=== PATIENT | female | born 1950 | race Hispanic/Latino ===

== ENCOUNTER 2020-05-18 12:18 | Day surgery (SDC) | payer OTHER ==
[2020-05-14 15:55] LABS: Absolute Lymphocytes (CBC) 2.8 K/uL (0.7-4.9); Basophils % 1.2 % (0-1.3); Lymphocytes % 34.3 % (15.3-44.8); MPV 9.8 fL (7.6-11.3); RBC Red Blood Cell Count 3.88 M/uL (3.86-4.86)
[2020-05-14 15:57] LABS: Protime INR 0.97
[2020-05-14 16:02] LABS: Potassium 3.7 mmol/L (3.5-5.1)
--- NOTE | 2020-05-15 12:48 | EKG ---
Test Date: 2020-05-14 Test Time: 14:14:45 Risk Control Manager: SAMIR MEASUREMENT RESULTS: Intervals: Rate: 57 CA: 150 QRSD: 88 QT: 420 QTc: 408 [place]: P: 66 CA: 150 QRS: 59 T: 91 INTERPRETIVE STATEMENTS: Sinus bradycardia ST abnormality, possible digitalis effect Abnormal ECG Compared to ECG 07/10/1999 18:16:00 ST (T wave) deviation now present Sinus rhythm no longer present Electronically Signed On 05-15-20 12:45:38 CDT by Robert Whitt
[2020-05-18] MEDS ORDERED: NA CHLORIDE 0.9% 500 ML ONE (12:59)
[2020-05-18] MEDS ORDERED: HEPA 1000U/500MLS 1,000 UNIT/500 ML BAG IV ONE (17:43)
[2020-05-18] MEDS ORDERED: MIDAZOLAM HCL 2 MG/2 ML INJ ONE (17:43)
[2020-05-18] MEDS ORDERED: HEPARIN 5000 UNIT/ML 1 ML VIAL ONE (17:43)
[2020-05-18] MEDS ORDERED: FENTANYL CITR 100 MCG/2 ML ONE (17:44)
[2020-05-18] MEDS ORDERED: VERAPAMIL HCL 10 MG/4 ML VIAL IV ONE (17:44)
[2020-05-18] MEDS ORDERED: ATROPINE SULF 1 MG/10 ML SYR IV ONE (17:44)
[2020-05-18] MEDS ORDERED: HEPARIN 10,000 UNIT/10 ML VIAL IV ONE (17:44)
[2020-05-18 19:45] VITALS: TEMP 97.6; O2SAT 98
[2020-05-18 21:06] VITALS: BP 123/55
--- NOTE | 2020-05-18 22:08 | OP ---
Date of Procedure: 05/18/2020 Surgeon: EVENS NAILS Procedure Performed: Selective coronary angiogram. Indication: Abnormal stress test. Access: Right radial artery 6-Kinyarwanda closed with TR band. Complications: None. Bleeding: Less than 10 mL. Description Of Procedure: After risks, benefits, and alternatives were explained, the patient agreed to the procedure and signed informed consent. Then we accessed the right radial artery using pediat lakia micropuncture kit and a 6-Kinyarwanda slender sheath, and took a 5-Kinyarwanda Brutus catheter 4.0 into the aortic root, engaged the left main and right coronary artery, took standard views and then removed th e catheter and sheath, and placed TR band. Findings: 1.Left main, large, normal. 2.LAD, proximal mild 30% stenosis. Otherwise normal LAD. 3.Left circumflex normal. 4.RCA is normal. Conclusion: Mild LAD disease, nonobstructive. Plan: Medical management and follow up in 4 weeks in the office. SR/MODL Voice ID: [id number] Report ID: [id number]
== END 2020-05-18 21:00 | disposition home or self-care (01) ==
LOC: CCL 12:18
PROVIDERS: ATTEND Internal Medicine
DX: I25.10 Atherosclerotic heart disease of native coronary artery without angina pectoris (principal); Z20.822 Contact with and (suspected) exposure to COVID-19
CPT/HCPCS: 93005; 85025; 80048; 36415; 85610; 85730; 93454; U0003; C1893; J1644 ×2; J2250; J3010; J7040

== ENCOUNTER 2021-04-30 18:34 | Emergency (ER) | payer OTHER ==
[2021-04-30] MEDS ORDERED: ONDANSETRON 4 MG/2 ML VIAL ONE (19:46)
[2021-04-30] MEDS ORDERED: MORPHINE 4 MG/ML SYR ONE (19:46)
[2021-04-30] MEDS ORDERED: FAMOTIDINE 20 MG/2 ML VIAL IV ONE (19:47)
[2021-04-30 19:59] LABS: Urine Blood Negative (Negative); Urine Glucose Negative (Negative); Urine Protein Negative (Negative)
[2021-04-30 20:09] LABS: Absolute Lymphocytes (CBC) 1.6 K/uL (0.7-4.9); Hematocrit 35.5 % (36.0-45.0); Lymphocytes % 21.7 % (15.3-44.8); MPV 9.1 fL (7.6-11.3); RBC Red Blood Cell Count 3.75 M/uL (3.86-4.86)
[2021-04-30 20:33] LABS: Urine Bacteria <20 /HPF (<20); Urine RBC <5 /HPF (NONE SEEN)
[2021-04-30 21:03] LABS: Albumin 3.9 g/dL (3.4-5.0); Bilirubin Total 0.5 mg/dL (0.2-1.0); Potassium 3.7 mmol/L (3.5-5.1); Protein, Total 7.5 g/dL (6.4-8.2)
[2021-04-30] MEDS ORDERED: OSELTAMIVIR 75 MG CAP ONE (21:12)
--- NOTE | 2021-04-30 22:05 | RAD REPORT ---
EXAM DESCRIPTION: CT - Abdomen Pelvis W Contrast - 04/30/2021 9:39 pm CLINICAL HISTORY: ABD PAIN COMPARISON: No comparisons TECHNIQUE: Biphasic, helical CT imaging of the abdomen and pelvis was performed following 100 ml non -ionic IV contrast. No oral contrast. All CT scans are performed using dose optimization technique as appropriate and may include automated exposure control or mA/KV adjustment according to patient size. FINDINGS: Venous phase acquisition has substantial motion degradation. No suspicious findings in the lung bases. The liver, spleen, and pancreas show no suspicious findings. Gallbladder is absent. Biliary tree with in normal limits for post cholecystectomy status. Symmetric renal function is seen with no hydronephrosis or suspicious renal mass. Focal cortical thin mari and calcification noted lateral inferior left kidney likely prior infection or possibly ischemic insult. No pyelonephritis or acute parenchymal process. No bladder abnormalities. No adrenal abnorma lities. Uterus and ovaries show no suspicious findings. No dilated bowel loops or bowel wall thickening. Prominent sigmoid diverticulosis without diverticuli tis. No suspicion for appendicitis. None No hernia, mass or bulky lymphadenopathy. Disc and bone degenerative changes are present. IMPRESSION: Contrast enhanced CT abdomen and pelvis showing no acute or emergent finding.
--- NOTE | 2021-04-30 22:52 | EDPHYS ---
Physician Documentation [facility] Name: Katherine Carroll Age: 71 yrs Sex: Female : 1950 Arrival Date: 04/30/2021 Time: 18:39 Bed 27 Private MD: ED Physician Adrian Patel HPI: 04/30 20:44 This 71 yrs old Female presents to ER via Ambulatory with complaints of ms3 Abdominal Pain, Vomiting. 20:44 The patient presents to the emergency department with abdominal pain, of the right ms3 upper quadrant, right lower quadrant and left lower quadrant, described as achy, and does not radiate. The patient presents to the emergency department with nausea, vomiting. Onset: The symptoms/episode began/occurred acutely, 5 day(s) ago. Possible causes: unknown. The symptoms are aggravated by nothing. The symptoms are alleviated by nothing. Associated signs and symptoms: Pertinent positives: abdominal pain, nausea, vomiting, Pertinent negatives: dysuria, fever. Severity of symptoms: At their worst the symptoms were severe in the emergency department the symptoms are unchanged Pain is currently a 8 / 10. 71-year-old female with past medical history of hypercholesterolemia and hypertension presents for right lower quadrant abdominal pain that has been ongoing for 5 days. Patient saw her primary care doctor yesterday and was given prescriptions for Cipro, tramadol, sucralfate, pantoprazole. Patient states her pain is currently 8/10 and described as "pain.". Patient states taking the pills made her feel worse. Patient endorses nausea, vomiting, chills. Patient denies fever.. Historical: - Allergies: 19:19 No Known Allergies; emma - Home Meds: 19:19 Cipro 250 mg Oral tab [Active]; sucralfate 1 gram Oral tab 1 tab 2 times per day emma [Active]; Protonix 40 mg Oral TbEC [Active]; tramadol 50 mg Oral tab [Active]; - PMHx: 19:19 Hypercholesterolemia; hypertension; emma - Immunization history:: Client reports receiving the 2nd dose of the Covid vaccine. - Social history:: Smoking status: Patient denies any tobacco usage or history of. Patient/guardian denies using alcohol, street drugs. ROS: 20:47 Constitutional: Negative for fever, and chills. Eyes: Negative for injury, pain, ms3 redness, and discharge, Neck: Negative for injury, pain, and swelling, Cardiovascular: Negative for chest pain, and palpitations. Respiratory: Negative for shortness of breath, cough, wheezing, and pleuritic chest pain, MS/Extremity: Negative for injury and deformity, Skin: Negative for injury, rash, and discoloration. 20:47 All other systems are negative. 20:47 Abdomen/GI: Positive for abdominal pain, nausea and vomiting. ms3 Exam: 20:47 Constitutional: This is a well developed, well nourished patient who is awake, alert, ms3 and in no acute distress. Eyes: Pupils equal round and reactive to light, extra-ocular motions intact. Lids and lashes normal. Conjunctiva and sclera are non-icteric and not injected. Periorbital areas with no swelling, redness, or edema. Neck: Trachea midline, no cervical lymphadenopathy. Supple, full range of motion without nuchal rigidity, or vertebral point tenderness. No Meningismus. Chest/axilla: Normal chest wall appearance and motion. Nontender with no deformity. Cardiovascular: Regular rate and rhythm with a normal S1 and S2. No gallops, murmurs, or rubs. Normal PMI, no JVD. No pulse deficits. Respiratory: Lungs have equal breath sounds bilaterally, clear to auscultation and percussion. No rales, rhonchi or wheezes noted. No increased work of breathing, no retractions or nasal flaring. Skin: Warm, dry with normal turgor. Normal color with no rashes, no lesions, and no evidence of cellulitis. Neuro: Awake and alert, GCS 15, oriented to person, place, time, and situation. Cranial nerves II-XII grossly intact. Motor strength 5/5 in all extremities. Sensory grossly intact. Cerebellar exam normal. Normal gait. 20:47 Abdomen/GI: Inspection: abdomen appears normal, Bowel sounds: normal, Palpation: moderate abdominal tenderness, in the left upper quadrant, right lower quadrant and left lower quadrant. Vital Signs: 19:16 BP 140 / 70; Pulse 72; Resp 18; Temp 97.7; Pulse Ox 99% on R/A; Weight 63.5 kg; Height emma 5 ft. 3 in. (160.02 cm); Pain 8/10; 19:22 BP 140 / 70; Pulse 72; Resp 18; Temp 97.7; Pulse Ox 99% on R/A; Pain 8/10; emma 20:06 BP 138 / 52; Pulse 59; Resp 20; Pulse Ox 97% ; ss7 22:46 BP 148 / 73; Pulse 59; Resp 18; Pulse Ox 98% on R/A; ss7 19:16 Body Mass Index 24.80 (63.50 kg, 160.02 cm) emma MDM: 19:46 Patient medically screened. ms3 20:48 Differential diagnosis: Nonspecific abd pain, gastritis, pancreatitis, appendicitis, ms3 diverticulitis, viral gastroenteritis, gastroenteritis. 22:51 Data reviewed: vital signs, nurses notes, lab test result(s), radiologic studies, CT ms3 scan. Counseling: I had a detailed discussion with the patient and/or guardian regarding: the historical points, exam findings, and any diagnostic results supporting the discharge/admit diagnosis, lab results, radiology results, the need for outpatient follow up, to return to the emergency department if symptoms worsen or persist or if there are any questions or concerns that arise at home. ED course: Discussed labs, CT, physical exam findings with patient and her daughter. Patient to follow-up with primary care physician as discussed. All questions were answered. Return precautions discussed include worsening symptoms, or any other concerns. On reevaluation patient is alert and oriented x4, no apparent distress, nontoxic, ambulatory emergency department, tolerating p.o.. 04/30 19:38 Order name: CBC with Diff; Complete Time: 20:44 ms3 04/30 19:38 Order name: CMP; Complete Time: 22:01 ms3 04/30 19:38 Order name: Lipase; Complete Time: 22:01 ms3 04/30 19:38 Order name: Urine Microscopic Only; Complete Time: 20:44 ms3 04/30 19:59 Order name: Urine Dipstick-Ancillary; Complete Time: 20:44 EDMS 04/30 20:36 Order name: Urine Culture ED04/30 19:38 Order name: CT Abd/Pelvis - IV Contrast Only; Complete Time: 22:21 ms3 04/30 19:38 Order name: IV Saline Lock; Complete Time: 19:49 ms3 04/30 19:38 Order name: Labs collected and sent; Complete Time: 19:49 ms3 04/30 20:43 Order name: Lactate; Complete Time: 22:01 ms3 04/30 19:38 Order name: Urine Dipstick-Ancillary (obtain specimen); Complete Time: 20:01 ms3 Administered Medications: 20:01 Drug: Pepcid (famotidine) 20 mg Route: IVP; Site: left antecubital; ss7 21:14 Follow up: Response: No adverse reaction; Marked relief of symptoms lr4 23:05 Follow up: Response: No adverse reaction ss7 20:01 Drug: Zofran (Ondansetron) 4 mg Route: IVP; Site: left antecubital; ss7 21:14 Follow up: Response: Nausea is decreased lr4 23:06 Follow up: Response: No adverse reaction ss7 20:01 Drug: morphine 4 mg Route: IVP; Site: left antecubital; ss7 21:14 Follow up: Response: Pain is decreased lr4 23:05 Follow up: Response: RASS: Alert and Calm (0) ss7 23:05 Drug: Ondansetron 4 mg Route: PO; ss7 23:06 Follow up: Response: No adverse reaction ss7 Disposition Summary: 04/30/21 22:51 Discharge Ordered Location: Home ms3 Problem: new ms3 Condition: Stable ms3 Diagnosis - Abdominal pain, Generalized ms3 - Nausea with vomiting, unspecified ms3 Followup: ms3 - With: Ramon Farley MD - When: 2 - 3 days - Reason: Re-evaluation by your physician Discharge Instructions: - Discharge Summary Sheet ms3 - Abdominal Pain, Adult ms3 - Nausea and Vomiting, Adult ms3 Forms: - Medication Reconciliation Form ms3 - Thank You Letter ms3 - Antibiotic Education ms3 - Prescription Opioid Use ms3 Prescriptions: - Zofran 4 mg Oral Tablet - take 1 tablet by ORAL route every 12 hours As needed; 20 tablet; Refills: 0, ms3 Product Selection Permitted Signatures: Dispatcher [employer] Adrian Mann DO DO ms3 Kourtney Jimenez RN RN bo Smith, Shana, RN RN ss7 Nakita Clayton RN lr4
--- NOTE | 2021-04-30 22:52 | ER ---
Nurse's Notes [facility] [place] Name: Katherine Carroll Age: 71 yrs Sex: Female : 1950 Arrival Date: 04/30/2021 Time: 18:39 Bed 27 Private MD: Diagnosis: Abdominal pain, Generalized;Nausea with vomiting, unspecified Presentation: 04/30 19:16 Chief complaint: Patient states: Abdominal pain x 4 days, seen by PCP yesterday. emma Coronavirus screen: Vaccine status: Patient reports receiving the 2nd dose of the covid vaccine. Ebola Screen: Patient negative for fever greater than or equal to 101.5 degrees Fahrenheit, and additional compatible Ebola Virus Disease symptoms Patient denies exposure to infectious person. Patient denies travel to an Ebola-affected area in the 21 days before illness onset. Initial Sepsis Screen: Does the patient meet any 2 criteria? No. Patient's initial sepsis screen is negative. Does the patient have a suspected source of infection? No. Patient's initial sepsis screen is negative. Risk Assessment: Do you want to hurt yourself or someone else? Patient reports no desire to harm self or others. Onset of symptoms was April 20, 2021. 19:16 Method Of Arrival: Ambulatory emma 19:16 Acuity: [place] 3 emma Triage Assessment: 19:21 General: Appears uncomfortable, Behavior is calm, cooperative, Micronesian speaking only . emma Pain: Complains of pain in abdomen. GI: Reports lower abdominal pain, constipation. Historical: - Allergies: 19:19 No Known Allergies; emma - Home Meds: 19:19 Cipro 250 mg Oral tab [Active]; sucralfate 1 gram Oral tab 1 tab 2 times per day emma [Active]; Protonix 40 mg Oral TbEC [Active]; tramadol 50 mg Oral tab [Active]; - PMHx: 19:19 Hypercholesterolemia; hypertension; emma - Immunization history:: Client reports receiving the 2nd dose of the Covid vaccine. - Social history:: Smoking status: Patient denies any tobacco usage or history of. Patient/guardian denies using alcohol, street drugs. Screenin:02 Abuse screen: Denies threats or abuse. Nutritional screening: No deficits noted. ss7 Tuberculosis screening: No symptoms or risk factors identified. Fall Risk IV access (20 points). Assessment: 20:02 General: Appears in no apparent distress. Behavior is calm, cooperative, appropriate ss7 for age. Pain: Complains of pain in abdomen. Neuro: No deficits noted. Cardiovascular: Heart tones S1 S2. Respiratory: Breath sounds are clear bilaterally. GI: Bowel sounds present X 4 quads. Abd is soft Abdomen is tender to palpation. : No deficits noted. EENT: No deficits noted. Derm: No deficits noted. Musculoskeletal: No deficits noted. Vital Signs: 19:16 BP 140 / 70; Pulse 72; Resp 18; Temp 97.7; Pulse Ox 99% on R/A; Weight 63.5 kg; Height emma 5 ft. 3 in. (160.02 cm); Pain 8/10; 19:22 BP 140 / 70; Pulse 72; Resp 18; Temp 97.7; Pulse Ox 99% on R/A; Pain 8/10; emma 20:06 BP 138 / 52; Pulse 59; Resp 20; Pulse Ox 97% ; ss7 22:46 BP 148 / 73; Pulse 59; Resp 18; Pulse Ox 98% on R/A; ss7 19:16 Body Mass Index 24.80 (63.50 kg, 160.02 cm) emma ED Course: 18:39 Patient arrived in ED. mr 19:18 Adrian Patel DO is Attending Physician. ms3 19:19 Triage completed. emma 19:23 Arm band placed on left wrist. emma 19:49 Magnolia Chung, RN is Primary Nurse. ss7 19:49 CBC with Diff Sent. ss7 19:49 CMP Sent. ss7 19:49 Lipase Sent. ss7 20:01 Urine Microscopic Only Sent. ss7 20:02 Patient has correct armband on for positive identification. ss7 20:02 No provider procedures requiring assistance completed. Inserted saline lock: 20 gauge ss7 in left antecubital area, using aseptic technique. 20:49 Urine Culture Sent. ss7 20:57 Lactate Sent. ss7 20:57 CMP Sent. ss7 20:57 Lipase Sent. ss7 21:13 Lactate Sent. lr4 21:41 CT Abd/Pelvis - IV Contrast Only In Process Unspecified. EDMS 22:50 Ramon Farley MD is Referral Physician. ms3 23:04 IV discontinued, intact. ss7 Administered Medications: 20:01 Drug: Pepcid (famotidine) 20 mg Route: IVP; Site: left antecubital; ss7 21:14 Follow up: Response: No adverse reaction; Marked relief of symptoms lr4 23:05 Follow up: Response: No adverse reaction ss7 20:01 Drug: Zofran (Ondansetron) 4 mg Route: IVP; Site: left antecubital; ss7 21:14 Follow up: Response: Nausea is decreased lr4 23:06 Follow up: Response: No adverse reaction ss7 20:01 Drug: morphine 4 mg Route: IVP; Site: left antecubital; ss7 21:14 Follow up: Response: Pain is decreased lr4 23:05 Follow up: Response: RASS: Alert and Calm (0) ss7 23:05 Drug: Ondansetron 4 mg Route: PO; ss7 23:06 Follow up: Response: No adverse reaction ss7 Outcome: 22:51 Discharge ordered by . ms3 22:52 Discharged to home with family. ss7 22:52 Condition: good 22:52 Discharge instructions given to patient, family. 23:07 Patient left the ED. ss7 Signatures: Dispatcher [employer] Bere Zafar Marcus, DO DO ms3 Kourtney Jimenez RN RN bo Smith, Shana, RN RN ss7 Nakita Clayton RN RN lr4
[2021-04-30] MEDS ORDERED: ONDANSETRON 4 MG (ODT) TAB ONE (23:03)
[2021-05-01 00:51] VITALS: TEMP 97.7
[2021-05-01 00:55] VITALS: BP 148/73; O2SAT 98
== END 2021-04-30 23:07 | disposition home or self-care (01) ==
LOC: ER 18:34
DX: R10.84 Generalized abdominal pain (principal); R11.2 Nausea with vomiting, unspecified; E78.00 Pure hypercholesterolemia, unspecified; I10 Essential (primary) hypertension
CPT/HCPCS: 87088; 85025; 87086; 36415; 83605; 83690; 80053; 74177; 96375; 96374; 99284; Q9967; J2405; 81003; 81015

== ENCOUNTER 2023-09-18 15:45 | Inpatient (IN) | payer OTHER ==
[2023-09-18] MEDS ORDERED: ONDANSETRON 4 MG/2 ML VIAL ONE (17:51)
[2023-09-18 18:07] LABS: Absolute Basophils 0.1 K/uL (0-0.5); Absolute Eosinophils 0.1 K/uL (0-0.5); Absolute Lymphocytes (CBC) 1.9 K/uL (0.7-4.9); Absolute Monocytes 1.1 K/uL (0.1-1.3); Absolute Neutrophil 10.2 K/uL (1.8-8.0); Basophils % 0.6 % (0-1.3); Eosinophils % 0.7 % (0-4.4); Hematocrit 38.1 % (36.0-45.0); Hemoglobin 12.7 g/dL (12.0-15.0); MCH 32.7 pg (27.0-35.0); MCHC 33.5 g/dL (32.0-36.0); MCV 97.8 fL (80-100); MPV 8.6 fL (7.6-11.3); Monocytes % 8.3 % (3.3-12.3); Neutrophils % 76.4 % (41.7-73.7); Platelets 272 thou/uL (152-406); Red Cell Distribution Width 12.5 % (12.1-15.2)
[2023-09-18 18:28] LABS: Albumin 3.7 g/dL (3.4-5.0); Albumin/Globulin Ratio 0.8 (1.1-1.8); Anion Gap 10.3 mEq/L (5.0-15.0); Bilirubin Total 0.6 mg/dL (0.2-1.0); Globulin 4.6 g/dL (2.3-3.5); Potassium 3.3 mEq/L (3.5-5.1); Protein, Total 8.3 g/dL (6.4-8.2)
[2023-09-18] MEDS ORDERED: NA CHLORIDE 0.9% 0 ML ONE (19:14)
[2023-09-18] MEDS ORDERED: NA CHLORIDE 0.9% 1,000 ML ONE (19:21)
--- NOTE | 2023-09-18 19:35 | RAD REPORT ---
EXAM DESCRIPTION: CT - Abdomen Pelvis W Contrast - 09/18/2023 7:15 pm CLINICAL HISTORY: Abdominal pain COMPARISON: 2021 TECHNIQUE: Computed axial tomography of the abdomen pelvis was obtained. 100 cc Isovue-300 was admin istered intravenously. Oral contrast was not requested which limits evaluation of bowel and appendix All CT scans are performed using dose optimization technique as appropriate and may include automated exposure control or mA/KV adjustment according to patient size. FINDINGS: The liver, spleen, pancreas, adrenal and kidneys appear unremarkable. Cholecystectomy. Liver, spleen, pancreas, adrenals and kidneys unremarkable Diverticula stem from the colon. Mild stranding adjacent to sigmoid. This likely represents mild dive rticulitis No adnexal mass Small umbilical hernia. Small hiatal hernia Cecum measures 6.6 centimeters IMPRESSION: Mild sigmoid diverticulitis
[2023-09-18] MEDS ORDERED: PIPERACIL/TAZO 3.375 GM VIAL IV ONE (20:01)
[2023-09-18] MEDS ORDERED: NA CHLORIDE 0.9% 100 ML ONE (20:01)
[2023-09-18 20:15] LABS: Specific Gravity 1.021 (1.005-1.030); Sqamous Epithelial <5 /HPF (None Seen); Urine Bacteria None Seen /HPF (<20); Urine Bilirubin NEGATIVE (Negative); Urine Blood 2+ (Negative); Urine Clarity Extremely Turbid (Clear); Urine Color Yellow (Yellow); Urine Culture Reflex Order REFLEXED; Urine Glucose NEGATIVE (Negative); Urine Ketones NEGATIVE (Negative); Urine Microscopic Reflex YN ORDER UMIC; Urine Mucus Slight /HPF (None Seen); Urine Nitrite NEGATIVE (Negative); Urine Protein 2+ (Negative); Urine RBC 21-50 /HPF (None Seen); Urine Urobilinogen Normal (Normal); Urine WBC >50 /HPF (<5); Urine pH 6.5 (5.0-7.0)
--- NOTE | 2023-09-18 20:33 | EDPHYS ---
Physician Documentation [facility] Name: Katherine Carroll Age: 73 yrs Sex: Female : 1950 Arrival Date: 09/18/2023 Time: 15:45 Bed 2 Private MD: ED Physician Sujit Putnam HPI: 09/17 20:32 This 73 yrs old Female presents to ER via Ambulatory with complaints of rt Vomiting. 20:32 Patient with recent diagnosis of COVID-19 presents to the ED with nausea, vomiting, rt diarrhea starting today. Patient does report a lower abdominal pain as well as a pain and burning with urination. Patient denies other acute complaints at this time, symptoms are moderate in severity, no other aggravating or elevating factors.. Historical: - Allergies: 16:21 No Known Allergies; cm10 - Home Meds: 16:21 losartan 25 mg oral tablet [Active]; rosuvastatin 5 mg oral tablet [Active]; cm10 - PMHx: 16:21 Hypercholesterolemia; Hypertension; cm10 - Immunization history:: Adult Immunizations up to date. - Infectious Disease History:: Denies. - Social history:: Smoking status: Patient denies any tobacco usage or history of. - Family history:: not pertinent. ROS: 20:32 Constitutional: Negative for fever, chills, and weight loss, Cardiovascular: Negative rt for chest pain, palpitations, and edema, Respiratory: Negative for shortness of breath, cough, wheezing, and pleuritic chest pain, MS/Extremity: Negative for injury and deformity, Skin: Negative for injury, rash, and discoloration, Neuro: Negative for headache, weakness, numbness, tingling, and seizure, 20:32 Abdomen/GI: Positive for abdominal pain, nausea, vomiting, and diarrhea, Exam: 20:32 Constitutional: This is a well developed, well nourished patient who is awake, alert, rt and in no acute distress. Head/Face: Normocephalic, atraumatic. Chest/axilla: Normal chest wall appearance and motion. Nontender with no deformity. No lesions are appreciated. Cardiovascular: Regular rate and rhythm with a normal S1 and S2. No gallops, murmurs, or rubs. Normal PMI, no JVD. No pulse deficits. Respiratory: Lungs have equal breath sounds bilaterally, clear to auscultation and percussion. No rales, rhonchi or wheezes noted. No increased work of breathing, no retractions or nasal flaring. Skin: Warm, dry with normal turgor. Normal color with no rashes, no lesions, and no evidence of cellulitis. MS/ Extremity: Pulses equal, no cyanosis. Neurovascular intact. Full, normal range of motion. Neuro: Awake and alert, GCS 15, oriented to person, place, time, and situation. Cranial nerves II-XII grossly intact. Motor strength 5/5 in all extremities. Sensory grossly intact. Cerebellar exam normal. Normal gait. 20:32 Abdomen/GI: Tenderness to the suprapubic region, no rebound, guarding, distention, Vital Signs: 16:19 BP 127 / 69; Pulse 79; Resp 18; Temp 98.3(O); Pulse Ox 94% on R/A; Weight 63.05 kg; cm10 Height 5 ft. 3 in. ; Pain 8/10; 17:57 Temp 98.7(O); nj1 19:30 BP 129 / 72; Pulse 91; Resp 14; Pulse Ox 99% ; Pain 7/10; jm12 19:30 BP 114 / 52; Pulse 68; Resp 16; Pulse Ox 98% on R/A; Pain 6/10; mt4 21:00 BP 125 / 54; Pulse 64; Resp 18; Pulse Ox 100% ; Pain 5/10; mt4 22:10 BP 126 / 60; Pulse 65; Resp 16; Temp 99.5; Pulse Ox 100% on R/A; mt4 23:00 BP 123 / 57; Pulse 60; Resp 16; Temp 99.4; Pulse Ox 97% on R/A; mt4 16:19 Body Mass Index 24.62 (63.05 kg, 160.02 cm) cm10 16:19 Pain Scale: Adult cm10 19:30 Pain Scale: Adult jm12 19:30 Pain Scale: Adult mt4 21:00 Pain Scale: Adult mt4 Penny Coma Score: 19:30 Eye Response: spontaneous(4). Motor Response: obeys commands(6). Verbal Response: mt4 oriented(5). Total: 15. 23:00 Eye Response: spontaneous(4). Motor Response: obeys commands(6). Verbal Response: mt4 oriented(5). Total: 15. MDM: 16:24 Patient medically screened. rt 20:32 Differential diagnosis: Viral syndrome, diverticulitis, UTI. Data reviewed: vital rt signs, nurses notes. Consideration of Admission/Observation Patient was admitted/placed on observation. Management of patient was discussed with the following: Hospitalist: Agrees to admit. I considered the following discharge prescriptions or medication management in the emergency department Medications were administered in the Emergency Department. See MAR. Independent interpretation of the following test(s) in the Emergency Department CT Scan: My interpretation is No bowel obstruction seen on interpretation of CT scan images. Care significantly affected by the following chronic conditions: Hypertension. Counseling: I had a detailed discussion with the patient and/or guardian regarding the historical points, exam findings, and any diagnostic results supporting the discharge/admit diagnosis, lab results, radiology results, the need for further work-up and treatment in the hospital. Response to treatment: the patient's symptoms have markedly improved after treatment. ED course: Patient did not meet a second SIRS criteria until heart rate of 91. Patient's initial presentation regardless was thought to be due to viral syndrome with COVID-19. Once a bacterial source, diverticulitis was identified, blood cultures, antibiotics were given.. 09/17 16:31 Order name: CBC with Diff; Complete Time: 19:11 rt 08 16:31 Order name: CMP; Complete Time: 19:11 rt 08 16:31 Order name: Lipase; Complete Time: 19:11 rt 08 16:31 Order name: Urinalysis w/ reflexes; Complete Time: 20:32 rt 09/17 19:46 Order name: Blood Culture Adult (2) rt 09/17 19:46 Order name: Lactate w/ 2H reflex if indic.; Complete Time: 21:00 rt 09/17 19:46 Order name: Protime (+inr); Complete Time: 21:00 rt 09/17 19:46 Order name: Ptt, Activated; Complete Time: 21:00 rt 09/17 20:19 Order name: Urine Culture EDMS 09/17 20:39 Order name: Glucose, Ancillary Testing; Complete Time: 21:00 EDMS 09/17 16:31 Order name: CT Abd/Pelvis - IV Contrast Only; Complete Time: 19:37 rt 09/17 19:46 Order name: EKG; Complete Time: 19:47 rt 08 16:31 Order name: IV Saline Lock; Complete Time: 18:01 rt 09/17 16:32 Order name: Labs collected and sent; Complete Time: 18:01 rt 09/17 19:46 Order name: Accucheck; Complete Time: 20:28 rt 09/17 19:46 Order name: Cardiac monitoring; Complete Time: 20:22 rt 09/17 19:46 Order name: EKG - Nurse/Tech; Complete Time: 20:54 rt 09/17 19:46 Order name: IV Saline Lock - Large Bore; Complete Time: 20:22 rt 09/17 19:46 Order name: O2 Per Protocol; Complete Time: 20:54 rt 09/17 19:46 Order name: O2 Sat Monitoring; Complete Time: 20:22 rt 09/17 19:46 Order name: Vital Signs; Complete Time: 20:22 rt Administered Medications: 17:56 Drug: Ondansetron IVP 4 mg IVP once; over 2 minutes Route: IVP; Site: left antecubital; nj1 22:22 Follow up: Response: No adverse reaction mt4 19:31 Drug: NS 0.9% IV 1000 ml IV at 1 bolus Per protocol; 1000 mL bolus Route: IV; Rate: 1 jm12 bolus; Site: right antecubital; 22:21 Follow up: Response: No adverse reaction; IV Status: Completed infusion; IV Intake: mt4 1000ml 20:54 Drug: Piperacillin-Tazobactam IVPB 3.375 grams IVPB once over 60 mins; (mix in NS 100 mt4 mL) Route: IVPB; Infused Over: 60 mins; Site: left antecubital; 22:20 Follow up: Response: No adverse reaction; IV Status: Completed infusion mt4 Disposition Summary: 09/18/23 20:32 Hospitalization Ordered Notes: Hospitalization Status: Inpatient Admission rt Provider: Natalia Orellana rt Location: Telemetry/[facility] (Inpatient) rt Condition: Stable rt Problem: new rt Symptoms: have improved rt Bed/Room Type: Standard rt Room Assignment: 403(09/18/23 21:48) kmf Diagnosis - Acute diverticulitis rt - Sepsis rt Forms: - Medication Reconciliation Form rt - SBAR form rt - Leadership Thank You Letter rt Critical care time excluding procedures: 20:32 Critical care time: Bedside Care: 30 minutes, Consultation: 5 minutes. Total time: 35 rt minutes Signatures: Dispatcher [employer] EDMS Sujit Putnam MD MD rt Laura Perea, RN RN nj1 Ginny Mota, RN RN cm10 Rhoda Love, PRODUCT ACCOUNTANT PRODUCT ACCOUNTANT cm12 Stephanie Delgadillo kmf Marci Roche, RN RN mt4 Geni Blanco RN RN jm12 Corrections: (The following items were deleted from the chart) 16:32 16:32 CBC+H.LAB.BRZ ordered. EDMS EDMS 16:32 16:32 COMPREHENSIVE METABOLIC PANEL+C.LAB.BRZ ordered. EDMS EDMS 16:32 16:32 LIPASE+C.LAB.BRZ ordered. EDMS EDMS 16:32 16:32 Urinalysis+U.LAB.BRZ ordered. EDMS EDMS 16:32 16:32 Abdomen Pelvis W Con+CT.RAD.BRZ ordered. EDMS EDMS 21:48 20:32 rt kmf
--- NOTE | 2023-09-18 20:33 | ER ---
Nurse's Notes [facility] Name: Katherine Carroll Age: 73 yrs Sex: Female : 1950 Arrival Date: 09/18/2023 Time: 15:45 Bed 2 Private MD: Diagnosis: Acute diverticulitis;Sepsis Presentation: 09/17 16:19 Chief complaint: Patient states: Diagnosed with Covid on 09/07/23 and last week patient cm10 started having vomiting and diarrhea. Pt also reports RUQ abdominal pain. Coronavirus screen: Client denies travel out of the [place] in the last 14 days. At this time, the client does not indicate any symptoms associated with coronavirus-19. Ebola Screen: Patient denies travel to an Ebola-affected area in the 21 days before illness onset. No symptoms or risks identified at this time. Initial Sepsis Screen: Does the patient meet any 2 criteria? No. Patient's initial sepsis screen is negative. Does the patient have a suspected source of infection? No. Patient's initial sepsis screen is negative. Risk Assessment: Do you want to hurt yourself or someone else? Patient reports no desire to harm self or others. Onset of symptoms was September 18, 2023. 16:19 Method Of Arrival: Ambulatory cm10 16:19 Acuity: [place] 3 cm10 Triage Assessment: 16:22 General: Appears in no apparent distress. comfortable, Behavior is calm, cooperative. cm10 Neuro: No deficits noted. Level of Consciousness is awake, alert, obeys commands, Oriented to person, place, time, situation, Appropriate for age. Respiratory: No deficits noted. Airway is patent Respiratory effort is even, unlabored, Respiratory pattern is regular, symmetrical. Historical: - Allergies: 16:21 No Known Allergies; cm10 - Home Meds: 16:21 losartan 25 mg oral tablet [Active]; rosuvastatin 5 mg oral tablet [Active]; cm10 - PMHx: 16:21 Hypercholesterolemia; Hypertension; cm10 - Immunization history:: Adult Immunizations up to date. - Infectious Disease History:: Denies. - Social history:: Smoking status: Patient denies any tobacco usage or history of. - Family history:: not pertinent. Screenin:30 [facility] ED Fall Risk Assessment (Adult) History of falling in the last 3 months, mt4 including since admission No falls in past 3 months (0 pts) Confusion or Disorientation No (0 pts) Intoxicated or Sedated No (0 pts) Impaired Gait No (0 pts) Mobility Assist Device Used No (0 pt) Altered Elimination No (0 pt) Score/Fall Risk Level 0 - 2 = Low Risk. Abuse screen: Denies injuries from another. Nutritional screening: No deficits noted. Tuberculosis screening: No symptoms or risk factors identified. Assessment: 19:22 General: Appears in no apparent distress. General: Appears in no apparent distress. jm12 Pain: Complains of pain in abdomen. Neuro: No deficits noted. GI: Reports lower abdominal pain, upper abdominal pain, vomiting. 19:40 General: Appears comfortable, Behavior is calm, cooperative, Smells of Reports Denies. mt4 Pain: Complains of pain in abdomen. Neuro: Oriented to person, place, time, situation. Neuro: Reports Denies. Cardiovascular: Capillary refill < 3 seconds. Respiratory: Airway is patent Respiratory effort is unlabored, Respiratory pattern is regular. GI: Abdomen is round non-distended, Abd is soft and non tender Abd is non tender in right lower quadrant and left lower quadrant. : Denies burning with urination. Musculoskeletal: Capillary refill Range of motion: intact in all extremities. 20:00 Reassessment: Patient and/or family updated on plan of care and expected duration. Pain mt4 level reassessed. 20:00 General: Appears in no apparent distress. Behavior is calm, cooperative. Neuro: Level mt4 of Consciousness is awake, alert, obeys commands, Oriented to person, place, time, situation. Cardiovascular: Capillary refill < 3 seconds. Respiratory: No deficits noted. Airway is patent. 23:00 General: Appears in no apparent distress. distressed, comfortable, Behavior is calm, mt4 cooperative. Neuro: Level of Consciousness is awake, alert, obeys commands, Oriented to person, place, time, situation. Cardiovascular: No deficits noted. Respiratory: Airway is patent. GI: Abdomen is non-distended, Abdomen is tender to palpation. Vital Signs: 16:19 BP 127 / 69; Pulse 79; Resp 18; Temp 98.3(O); Pulse Ox 94% on R/A; Weight 63.05 kg; cm10 Height 5 ft. 3 in. ; Pain 8/10; 17:57 Temp 98.7(O); nj1 19:30 BP 129 / 72; Pulse 91; Resp 14; Pulse Ox 99% ; Pain 7/10; jm12 19:30 BP 114 / 52; Pulse 68; Resp 16; Pulse Ox 98% on R/A; Pain 6/10; mt4 21:00 BP 125 / 54; Pulse 64; Resp 18; Pulse Ox 100% ; Pain 5/10; mt4 22:10 BP 126 / 60; Pulse 65; Resp 16; Temp 99.5; Pulse Ox 100% on R/A; mt4 23:00 BP 123 / 57; Pulse 60; Resp 16; Temp 99.4; Pulse Ox 97% on R/A; mt4 16:19 Body Mass Index 24.62 (63.05 kg, 160.02 cm) cm10 16:19 Pain Scale: Adult cm10 19:30 Pain Scale: Adult jm12 19:30 Pain Scale: Adult mt4 21:00 Pain Scale: Adult mt4 Vitals: 19:30 Cardiac Rhythm Assessment Regular. mt4 Penny Coma Score: 19:30 Eye Response: spontaneous(4). Motor Response: obeys commands(6). Verbal Response: mt4 oriented(5). Total: 15. 23:00 Eye Response: spontaneous(4). Motor Response: obeys commands(6). Verbal Response: mt4 oriented(5). Total: 15. ED Course: 15:48 Patient arrived in ED. im 16:21 Triage completed. cm10 16:22 Arm band placed on Patient placed in waiting room. cm10 16:23 Sujit Putnam MD is Attending Physician. rt 17:55 Inserted saline lock: 20 gauge in left antecubital area, using aseptic technique. Blood nj1 collected. Flushed with 10 mL NS. 19:12 Marci Roche, RN is Primary Nurse. mt4 19:17 CT Abd/Pelvis - IV Contrast Only In Process Unspecified. EDMS 19:30 No apparent distress. Resting quietly. Awaiting bed assignment. mt4 19:30 Patient has correct armband on for positive identification. Bed in low position. Side mt4 rails up X 1. screen printer helper on. Pulse ox on. Noise minimized. Lights dimmed. Assisted to bathroom. 19:30 Patient maintains SpO2 saturation greater than 95% on room air. mt4 19:32 IV is patent, is intact, Flushed right antecubital with 5 ml normal saline. jm12 19:38 Urinalysis w/ reflexes Sent. vk 19:38 Urine collected: clean catch specimen, clear. vk 20:00 Bed in low position. Call light in reach. Side rails up X 1. Client placed on mt4 continuous cardiac and pulse oximetry monitoring. NIBP monitoring applied. screen printer helper on. Pulse ox on. Door closed. Lights dimmed. 20:32 Natalia Orellana MD is Hospitalizing Provider. rt 23:00 No apparent distress. mt4 23:00 Client placed on continuous cardiac and pulse oximetry monitoring. NIBP monitoring mt4 applied. screen printer helper on. Pulse ox on. Noise minimized. Lights dimmed. Warm blanket given. Pillow given. Head of bed. 23:00 Patient maintains SpO2 saturation greater than 95% on room air. mt4 23:28 No provider procedures requiring assistance completed. Patient admitted, IV remains in mt4 place. intact. 23:29 Provided Education on: on admission . mt4 Administered Medications: 17:56 Drug: Ondansetron IVP 4 mg IVP once; over 2 minutes Route: IVP; Site: left antecubital; nj 22:22 Follow up: Response: No adverse reaction mt4 19:31 Drug: NS 0.9% IV 1000 ml IV at 1 bolus Per protocol; 1000 mL bolus Route: IV; Rate: 1 jm12 bolus; Site: right antecubital; 22:21 Follow up: Response: No adverse reaction; IV Status: Completed infusion; IV Intake: mt4 1000ml 20:54 Drug: Piperacillin-Tazobactam IVPB 3.375 grams IVPB once over 60 mins; (mix in NS 100 mt4 mL) Route: IVPB; Infused Over: 60 mins; Site: left antecubital; 22:20 Follow up: Response: No adverse reaction; IV Status: Completed infusion mt4 Medication: 23:00 VIS not applicable for this client. mt4 Intake: 22:21 IV: 1000ml; Total: 1000ml. mt4 Outcome: 20:32 Decision to Hospitalize by Provider. rt 23:27 Admitted to Med/surg accompanied by tech, via wheelchair, mt4 23:27 Condition: good 23:27 Instructed on the need for admit, safety practices, 23:28 Patient left the ED. jm12 Signatures: Dispatcher [employer] EDMS Sujit Putnam MD MD rt Laura Perea RN RN nj1 Celine Valente Clarissa, RN RN cm10 Ivette Mendoza Molinec, RN RN mt4 Geni Blanco RN RN jm12 Corrections: (The following items were deleted from the chart) 22:19 22:10 BP 126 / 60; Pulse 65bpm; Resp 16bpm; Pulse Ox 100% RA; mt4 mt4
[2023-09-18 20:37] LABS: PTT, Activated Partial Thromb 25.6 SECONDS (24.3-36.9); Protime INR 1.07
--- NOTE | 2023-09-18 20:51 | P.HP ---
Certification for Inpatient Patient admitted to: Inpatient With expected LOS: <2 Midnights <IvanRhoda - Last Filed: 09/19/23 02:43> Patient History Date of Service: 09/19/23 Reason for admission: Diverticulitis History of Present Illness: 73 yr old , Norwegian-speaking female with a Past medical history of hypertension, hyperlipidemia, presents to the emergency room with abdominal pain. She reports associated nausea vomiting, diarrhea. She reports being on a cruise, exposed to COVID 10 days ago. She reports diarrhea started today, getting progressively worse. Abdominal CT IMPRESSION: Mild sigmoid diverticulitis, laboratory evaluation leukocytosis 13.30, left shift 76.4, mild hypokalemia 3.3 mild dehydration with acute kidney injury elevated creatinine 1.21, GFR 47, transaminitis 53, positive for UTI leukoesterase greater than 500, plan to admit for diverticulitis, UTI, for IV fluids IV antibiotic. - Past Medical/Surgical History -: Hypertension -: Hyperlipidemia - Family History Mother -: Heart disease - Social History Smoking Status: Never smoker Smoking therapy provided: No Alcohol use: No Caffeine use: Yes Place of Residence: Home <Rhoda Love - Last Filed: 09/19/23 02:43> Date of Service: 09/19/23 <Natalia Orellana - Last Filed: 09/19/23 14:24> Allergies No Known Allergies Allergy (Verified 05/14/20 15:02) Home Medications: Alendronate Sodium 70 mg PO Q7D 09/19/23 Losartan Potassium [Cozaar] 25 mg PO BEDTIME 09/19/23 Rosuvastatin Calcium 5 mg PO BEDTIME 09/19/23 Review of Systems PER HPI <Rhoda Love - Last Filed: 09/19/23 02:43> Physical Examination - Physical Exam General: Alert, In no apparent distress, Oriented x3 HEENT: Atraumatic, Normocephalic Neck: Supple, 2+ carotid pulse no bruit Respiratory: Clear to auscultation bilaterally, Normal air movement Cardiovascular: Normal pulses, Regular rate/rhythm Capillary refill: <2 Seconds Gastrointestinal: Normal bowel sounds, Other (Lower quadrant tenderness) Musculoskeletal: No clubbing, No swelling Integumentary: No breakdown, No significant lesion Neurological: Normal speech, Normal strength at 5/5 x4 extr, Cranial nerves 3-12 intact - Studies Laboratory Data (last 24 hrs) 09/18/23 09/18/23 09/18/23 20:00 17:55 17:55 WBC 13.30 H Hgb 12.7 Hct 38.1 Plt Count 272 PT 12.0 INR 1.07 APTT 25.6 Sodium 137 Potassium 3.3 L BUN 15 Creatinine 1.21 H Glucose 108 H Total Bilirubin 0.6 AST 53 H ALT 50 Alkaline Phosphatase 83 Lipase 39 <Rhoda Love - Last Filed: 09/19/23 02:43> - Studies Laboratory Data (last 24 hrs) 09/18/23 09/18/23 09/18/23 20:00 17:55 17:55 WBC 13.30 H Hgb 12.7 Hct 38.1 Plt Count 272 PT 12.0 INR 1.07 APTT 25.6 Sodium 137 Potassium 3.3 L BUN 15 Creatinine 1.21 H Glucose 108 H Total Bilirubin 0.6 AST 53 H ALT 50 Alkaline Phosphatase 83 Lipase 39 <Natalia Orellana - Last Filed: 09/19/23 14:24> Assessment and Plan - Plan Assessment plan Diverticulitis Abdominal pain Nausea vomiting IV fluids, IV antibiotics, antiemetics, as needed analgesics, 73 yr old , Norwegian-speaking female with a Past medical history of hypertension, hyperlipidemia, presents to the emergency room with abdominal pain. She reports associated nausea vomiting, diarrhea. She reports being on a cruise, exposed to COVID 10 days ago. She reports diarrhea started today, getting progressively worse. Abdominal CT IMPRESSION: Mild sigmoid diverticulitis, laboratory evaluation leukocytosis 13.30, left shift 76.4, mild hypokalemia 3.3 mild dehydration with acute kidney injury elevated creatinine 1.21, GFR 47, Trend kidney transaminitis Acute cystitis transaminitis 53, positive for UTI leukoesterase greater than 500, for IV fluids IV antibiotic. Hypokalemia Dehydration Acute kidney Electrolytes replace as needed, IV fluid Hypertension Hyperlipidemia Resume home meds Full code Clear liquid diet DVT SCDs Disposition Home independent prior Discharge Plan: Home - Advance Directives Does patient have a Living Will: No Does patient have a Durable POA for Healthcare: No - Code Status/Comfort Care Code Status: Full Code Critical Care: No Time Spent Managing Pts Care (In Minutes): 55 <Rhoda Love - Last Filed: 09/19/23 02:43> - Plan Pt seen and examined. I agree with the note by the FURNACE AND WASH EQUIPMENT OPERATOR. Pt is a 73yo female with past medical history of hypertension and hyperlipidemia who presents with abdominal pain, nausea, vomiting, and diarrhea. Of note, pt was recently on a cruise and got exposed to COVID 10 days. On admission, CT abd shows mild sigmoid diverticulitis. Lab studies show WBC 13.3, left shift 76.4, K 3.3, Cr 1.21 and UTI. At bedside, pt is in NAD. A/P: Acute diverticulitis: Will continue zosyn and IVF. UTI: Continue zosyn and f/u urine cx. COVID: Continue enhanced resp precaution. She is oxygenating well on room air. Will will monitor reap status. Continue vitamin D, vitamin C and zinc sulfate. Htn: Continue home med HLD: statin. DVT ppx: SCD Code: full <Natalia Orellana - Last Filed: 09/19/23 14:24>
[2023-09-18] MEDS ORDERED: ONDANSETRON 4 MG/2 ML VIAL IV PRN (23:45)
[2023-09-18] MEDS: NA CHLORIDE 0.9% 1,000 ML IV SCH (23:54)
[2023-09-18] MEDS: MORPHINE 2 MG/ML SYR IV PRN (23:54)
[2023-09-19 00:01] VITALS: BMI 24.3
[2023-09-19] MEDS: PIPER TAZO 3.375 GM in NA CHLORIDE 0.9% 100 ML IV SCH ×2 (00:41→05:00)
[2023-09-19 05:44] LABS: Absolute Eosinophils 0.2 K/uL (0-0.5); Absolute Lymphocytes (CBC) 1.9 K/uL (0.7-4.9); Absolute Monocytes 1.2 K/uL (0.1-1.3); Absolute Neutrophil 6.7 K/uL (1.8-8.0); Basophils % 0.3 % (0-1.3); Eosinophils % 1.5 % (0-4.4); Hematocrit 29.7 % (36.0-45.0); Hemoglobin 10.4 g/dL (12.0-15.0); Lymphocytes % 18.9 % (15.3-44.8); MCH 33.4 pg (27.0-35.0); MCV 95.4 fL (80-100); MPV 8.6 fL (7.6-11.3); Monocytes % 11.7 % (3.3-12.3); Neutrophils % 67.6 % (41.7-73.7); Platelets 218 thou/uL (152-406); RBC Red Blood Cell Count 3.11 M/uL (3.86-4.86); Red Cell Distribution Width 12.2 % (12.1-15.2)
[2023-09-19 05:59] LABS: Anion Gap 9.5 mEq/L (5.0-15.0); Potassium 3.5 mEq/L (3.5-5.1)
[2023-09-19] MEDS: KCL 20 MEQ/100 mL IVPB 20 MEQ/100 ML BAG IV SCH (08:44)
[2023-09-19] MEDS: POTASSIUM CL SA 10 MEQ TAB PO ONE (09:38)
--- NOTE | 2023-09-19 14:32 | P.PN ---
Subjective Date of Service: 09/19/23 Chief Complaint: Diverticulitis Pt is resting comfortably in bed. She complained of pain in her left arm due to iv KCL. It was changed to po KCL. No other complaints. Review of Systems General: Unremarkable Eyes: Unremarkable ENT: Unremarkable Respiratory: Unremarkable Cardiovascular: Unremarkable Gastrointestinal: Unremarkable Genitourinary: Unremarkable Musculoskeletal: Unremarkable Integumentary: Unremarkable Neurological: Unremarkable Lymphatics: Unremarkable Physical Examination - Vital Signs Temperature: 97.6 F Blood Pressure: 127/59 Pulse: 64 Respirations: 15 Pulse Ox (%): 97 - Physical Exam General: Alert, In no apparent distress, Oriented x3 HEENT: Atraumatic, Normocephalic, PERRLA Neck: Supple, 2+ carotid pulse no bruit, JVD not distended Respiratory: Clear to auscultation bilaterally, Normal air movement Cardiovascular: No edema, Normal pulses, Regular rate/rhythm Capillary refill: <2 Seconds Gastrointestinal: Normal bowel sounds, Soft and benign, Non-distended Musculoskeletal: No clubbing, No swelling, No contractures, Other (left arm pain due to iv KCL. ) Integumentary: No rashes, No breakdown, No significant lesion Neurological: Normal gait, Normal speech, Normal strength at 5/5 x4 extr Lymphatics: No axilla or inguinal lymphadenopathy - Studies Laboratory Data (last 24 hrs) 09/18/23 09/18/23 09/18/23 20:00 17:55 17:55 WBC 13.30 H Hgb 12.7 Hct 38.1 Plt Count 272 PT 12.0 INR 1.07 APTT 25.6 Sodium 137 Potassium 3.3 L BUN 15 Creatinine 1.21 H Glucose 108 H Total Bilirubin 0.6 AST 53 H ALT 50 Alkaline Phosphatase 83 Lipase 39 Assessment And Plan - Plan Acute diverticulitis: Will continue zosyn and IVF. UTI: Continue zosyn and f/u urine cx. COVID: Pt had COVID exposure about 10 days ago while on a cruise ship. Continue enhanced resp precaution. She is oxygenating well on room air. Will will monitor reap status. Continue vitamin D, vitamin C and zinc sulfate. Hypokalemia: K is 3.5. Will replete potassium and monitor. Htn: Continue home med HLD: statin. DVT ppx: SCD Code: full
[2023-09-19] MEDS: ACETAMINOPHEN 325 MG TABLET PO PRN (21:09)
[2023-09-20 07:59] LABS: Absolute Eosinophils 0.1 K/uL (0-0.5); Absolute Lymphocytes (CBC) 1.4 K/uL (0.7-4.9); Absolute Monocytes 1.3 K/uL (0.1-1.3); Absolute Neutrophil 6.4 K/uL (1.8-8.0); Basophils % 0.3 % (0-1.3); Eosinophils % 1.2 % (0-4.4); Hematocrit 30.7 % (36.0-45.0); Hemoglobin 10.8 g/dL (12.0-15.0); Lymphocytes % 15.1 % (15.3-44.8); MCH 33.7 pg (27.0-35.0); MCHC 35.1 g/dL (32.0-36.0); MCV 96.2 fL (80-100); MPV 8.1 fL (7.6-11.3); Monocytes % 13.9 % (3.3-12.3); Neutrophils % 69.5 % (41.7-73.7); Nucleated Red Blood Cells % 0.1 % (0-0); Platelets 230 thou/uL (152-406); RBC Red Blood Cell Count 3.19 M/uL (3.86-4.86); Red Cell Distribution Width 12.3 % (12.1-15.2)
[2023-09-20] MEDS: ZINC SULFATE 220 MG CAP PO SCH (08:01)
[2023-09-20] MEDS: VITAMIN D 1000 UNIT TAB PO SCH (08:01)
[2023-09-20] MEDS: ASCORBIC ACID 500 MG TABLET PO SCH (08:01)
[2023-09-20 08:14] LABS: Anion Gap 11.6 mEq/L (5.0-15.0); Magnesium 1.9 mg/dL (1.6-2.4); Potassium 3.6 mEq/L (3.5-5.1)
[2023-09-20] MEDS: VANCOMYCIN HCL 125 MG CAPSULE PO SCH (09:00)
[2023-09-20 09:10] LABS: CDIFF INTERNAL NEG CONTROL White Background (WHITE BKGD); STOOL CONSISTENCY Liquid/Semi-Solid
[2023-09-20 09:12] LABS: C.diff Antigen/Toxin Ag pos : Tox pos (NEG : NEG)
--- NOTE | 2023-09-20 12:58 | P.PN ---
Subjective Date of Service: 09/20/23 Chief Complaint: Diverticulitis Pt is resting comfortably in bed. She complains of diarrhea and nausea. C diff is positive. No other complaints. Review of Systems General: Unremarkable Eyes: Unremarkable ENT: Unremarkable Respiratory: Unremarkable Cardiovascular: Unremarkable Gastrointestinal: Unremarkable Genitourinary: Unremarkable Musculoskeletal: Unremarkable Integumentary: Unremarkable Neurological: Unremarkable Lymphatics: Unremarkable Physical Examination - Vital Signs Temperature: 98 F Blood Pressure: 123/63 Pulse: 70 Respirations: 15 Pulse Ox (%): 97 - Physical Exam General: Alert, In no apparent distress, Oriented x3 HEENT: Atraumatic, Normocephalic, PERRLA Neck: Supple, 2+ carotid pulse no bruit, JVD not distended Respiratory: Clear to auscultation bilaterally, Normal air movement Cardiovascular: No edema, Normal pulses, Regular rate/rhythm, Normal S1 S2 Capillary refill: <2 Seconds Gastrointestinal: Normal bowel sounds, Soft and benign, Non-distended Musculoskeletal: No clubbing, No swelling, No contractures Integumentary: No rashes, No breakdown, No significant lesion Neurological: Normal gait, Normal speech, Normal strength at 5/5 x4 extr, Normal tone Lymphatics: No axilla or inguinal lymphadenopathy Assessment And Plan - Plan Acute diverticulitis: Will continue zosyn and IVF. Dirrhea; Due to C diff. will continue vancomycin 125mg po Q6h. UTI: Continue zosyn and f/u urine cx. COVID: Pt had COVID exposure about 10 days ago while on a cruise ship. Continue enhanced resp precaution. She is oxygenating well on room air. Will will monitor reap status. Continue vitamin D, vitamin C and zinc sulfate. Hypokalemia: K is 3.6<- 3.5. Will replete potassium and monitor. Htn: Continue home med HLD: statin. DVT ppx: SCD Code: full
[2023-09-21 08:00] LABS: Absolute Eosinophils 0.1 K/uL (0-0.5); Absolute Lymphocytes (CBC) 1.3 K/uL (0.7-4.9); Absolute Monocytes 1.4 K/uL (0.1-1.3); Absolute Neutrophil 4.9 K/uL (1.8-8.0); Basophils % 0.3 % (0-1.3); Eosinophils % 1.5 % (0-4.4); Hematocrit 31.8 % (36.0-45.0); Hemoglobin 11.3 g/dL (12.0-15.0); Lymphocytes % 16.4 % (15.3-44.8); MCH 33.5 pg (27.0-35.0); MCHC 35.5 g/dL (32.0-36.0); MCV 94.6 fL (80-100); MPV 7.5 fL (7.6-11.3); Monocytes % 18.3 % (3.3-12.3); Neutrophils % 63.5 % (41.7-73.7); Platelets 259 thou/uL (152-406); RBC Red Blood Cell Count 3.36 M/uL (3.86-4.86); Red Cell Distribution Width 12.3 % (12.1-15.2)
[2023-09-21 08:18] LABS: Anion Gap 8.9 mEq/L (5.0-15.0); Potassium 2.9 mEq/L (3.5-5.1)
--- NOTE | 2023-09-21 13:40 | P.PN ---
Subjective Date of Service: 09/21/23 Chief Complaint: Diverticulitis Pt is resting comfortably in bed. She complains of diarrhea and nausea. C diff is positive. No other complaints. Review of Systems General: Unremarkable Eyes: Unremarkable ENT: Unremarkable Respiratory: Unremarkable Cardiovascular: Unremarkable Gastrointestinal: Unremarkable Genitourinary: Unremarkable Musculoskeletal: Unremarkable Integumentary: Unremarkable Neurological: Unremarkable Lymphatics: Unremarkable Physical Examination - Vital Signs Temperature: 97.2 F Blood Pressure: 132/61 Pulse: 70 Respirations: 18 Pulse Ox (%): 99 - Physical Exam General: Alert, In no apparent distress, Oriented x3 HEENT: Atraumatic, Normocephalic, PERRLA Neck: Supple, 2+ carotid pulse no bruit, JVD not distended Respiratory: Clear to auscultation bilaterally, Normal air movement Cardiovascular: No edema, Normal pulses, Regular rate/rhythm, Normal S1 S2 Capillary refill: <2 Seconds Gastrointestinal: Normal bowel sounds, Soft and benign, Non-distended Musculoskeletal: No clubbing, No swelling, No contractures Integumentary: No rashes, No breakdown, No significant lesion Neurological: Normal gait, Normal speech, Normal strength at 5/5 x4 extr, Normal tone Lymphatics: No axilla or inguinal lymphadenopathy Assessment And Plan - Plan Acute diverticulitis: Will continue po vanc / flagyl and IVF. Diarrhea: Due to C diff. will continue vancomycin 125mg po Q6h and flagyl 500mg iv TID. . UTI: Continue rocephin. Off zosyn. F/u urine cx. COVID: Pt had COVID exposure about 10 days ago while on a cruise ship. Continue enhanced resp precaution. She is oxygenating well on room air. Will will monitor reap status. Continue vitamin D, vitamin C and zinc sulfate. Hypokalemia: K is 3.6<- 3.5. Will replete potassium and monitor. Htn: Continue home med HLD: statin. DVT ppx: SCD Code: full
[2023-09-21] MEDS: CEFTRIAXONE 1,000 MG in NA CHLORIDE 0.9% 50 ML IVPB SCH (14:05)
--- NOTE | 2023-09-21 16:26 | EKG ---
Test Date: 2023-09-18 Test Time: 20:51:03 Drying Supervisor: KINGA MEASUREMENT RESULTS: Intervals: Rate: 73 TN: 152 QRSD: 84 QT: 408 QTc: 449 [place]: P: 52 TN: 152 QRS: 48 T: 49 INTERPRETIVE STATEMENTS: Normal sinus rhythm Nonspecific T wave abnormality Abnormal ECG Compared to ECG 05/14/2020 14:14:45 T-wave abnormality now present Sinus bradycardia no longer present ST (T wave) deviation no longer present Electronically Signed On 09-21-23 16:24:47 CDT by Mike Gould
[2023-09-21] MEDS ORDERED: METRONIDAZOLE 500mg IVPB 500 MG/100 ML BAG IV SCH (17:00)
[2023-09-22] MEDS: DIPHENOX/ATROP SULF 1 TAB PO ONE (14:54)
[2023-09-22 15:52] LABS: Absolute Eosinophils 0.2 K/uL (0-0.5); Absolute Lymphocytes (CBC) 1.6 K/uL (0.7-4.9); Absolute Monocytes 1.1 K/uL (0.1-1.3); Basophils % 0.5 % (0-1.3); Eosinophils % 2.1 % (0-4.4); Hematocrit 35.5 % (36.0-45.0); Hemoglobin 12.3 g/dL (12.0-15.0); Lymphocytes % 20.3 % (15.3-44.8); MCH 33.1 pg (27.0-35.0); MCHC 34.7 g/dL (32.0-36.0); MCV 95.3 fL (80-100); MPV 8.1 fL (7.6-11.3); Monocytes % 13.8 % (3.3-12.3); Neutrophils % 63.3 % (41.7-73.7); Nucleated Red Blood Cells % 0.1 % (0-0); Platelets 296 thou/uL (152-406); RBC Red Blood Cell Count 3.72 M/uL (3.86-4.86); Red Cell Distribution Width 12.4 % (12.1-15.2)
[2023-09-22 16:23] LABS: Albumin/Globulin Ratio 0.8 (1.1-1.8); Anion Gap 8.1 mEq/L (5.0-15.0); Bilirubin Total 0.4 mg/dL (0.2-1.0); Magnesium 2.5 mg/dL (1.6-2.4); Potassium 3.1 mEq/L (3.5-5.1)
[2023-09-22] MEDS: Mupirocin NASAL 2 APPL/1 GM TUBE NAS SCH (20:56)
[2023-09-22] MEDS: Banana Flakes/T-Galactooligos 1 Dose Packet PO SCH (20:57)
[2023-09-22] MEDS: ENSURE CLEAR 200 ML CAN PO SCH (20:57)
[2023-09-23 04:17] VITALS: O2SAT 98
[2023-09-23] MEDS: POTASSIUM CL SA 10 MEQ TAB PO SCH (08:57)
--- NOTE | 2023-09-23 12:07 | P.DS ---
Admission Date: 09/18/23 Discharge Date: 09/23/23 Disposition: ROUTINE DISCHARGE Discharge Condition: GOOD Reason for Admission: Diverticulitis Brief History of Present Illness: 73 yr old , Marshallese-speaking female with a Past medical history of hypertension, hyperlipidemia, presents to the emergency room with abdominal pain. She reports associated nausea vomiting, diarrhea. She reports being on a cruise, exposed to COVID 10 days ago. She reports diarrhea started today, getting progressively worse. Abdominal CT IMPRESSION: Mild sigmoid diverticulitis, laboratory evaluation leukocytosis 13.30, left shift 76.4, mild hypokalemia 3.3 mild dehydration with acute kidney injury elevated creatinine 1.21, GFR 47, transaminitis 53, positive for UTI leukoesterase greater than 500, plan to admit for diverticulitis, UTI, for IV fluids IV antibiotic. Hospital Course: Pt is a 73yo female with past medical history of hypertension and hyperlipidemia who presented with abdominal pain, nausea vomiting, and diarrhea. Of note, pt was on a cruise where she was exposed to COVID prior to coming to the ER. On admission, CT abd showed mild sigmoid diverticulitis. Laboratory studies showed leukocytosis 13.30, left shift 76.4, mild hypokalemia 3.3 mild dehydration with acute kidney injury elevated creatinine 1.21, GFR 47, transaminitis 53, Urinalysis was positiive for UTI. We admitted pt for diverticulitis and UTI. We gave rocephin and and pt later tested positive for C diff. We started vancomycin 125mg po QID and IV fluids. The diarrhea resolved and pt requested to be discharged. We continued enhanced resp precaution, vitamin D, vitamin C and zinc sulfate for COVID. We repleted potassium and continue home meds for other chronic medical problems. Pt was in NAD prior to discharge. Vital Signs/Physical Exam: Temp Pulse Resp BP Pulse Ox 96.6 F L 68 16 121/59 L 99 09/23/23 08:00 09/23/23 08:00 09/23/23 08:00 09/23/23 08:00 09/23/23 08:00 Laboratory Data at Discharge: WBC 7.90 thou/uL (4.3-10.9) 09/22/23 15:20 Hgb 12.3 g/dL (12.0-15.0) 09/22/23 15:20 Hct 35.5 % (36.0-45.0) L 09/22/23 15:20 Plt Count 296 thou/uL (152-406) 09/22/23 15:20 PT 12.0 SECONDS (9.4-12.5) 09/18/23 20:00 INR 1.07 09/18/23 20:00 APTT 25.6 SECONDS (24.3-36.9) 09/18/23 20:00 Sodium 138 mEq/L (136-145) 09/22/23 15:20 Potassium 3.1 mEq/L (3.5-5.1) L 09/22/23 15:20 BUN 8 mg/dL (7-18) 09/22/23 15:20 Creatinine 0.83 mg/dL (0.55-1.02) 09/22/23 15:20 Glucose 88 mg/dL (74-106) 09/22/23 15:20 Magnesium 2.5 mg/dL (1.6-2.4) H 09/22/23 15:20 Total Bilirubin 0.4 mg/dL (0.2-1.0) 09/22/23 15:20 AST 26 U/L (15-37) 09/22/23 15:20 ALT 32 U/L (13-56) 09/22/23 15:20 Alkaline Phosphatase 73 U/L (45-117) 09/22/23 15:20 Lipase 39 U/L (13-75) 09/18/23 17:55 Home Medications: Alendronate Sodium 70 mg PO Q7D 09/19/23 Losartan Potassium [Cozaar] 25 mg PO BEDTIME 09/19/23 Rosuvastatin Calcium 5 mg PO BEDTIME 09/19/23 Ascorbic Acid [Vitamin C*] 500 mg PO DAILY 7 Days #7 tab 09/23/23 Cefdinir [Cefdinir*] 300 mg PO BID 2 Days #4 cap 09/23/23 Cholecalciferol (Vitamin D3) [Vitamin D 1000 Iu Tab*] 1,000 unit PO DAILY 7 Days #7 tab 09/23/23 Potassium Chloride 20 meq PO DAILY 3 Days #3 tab 09/23/23 Vancomycin HCl 125 mg PO QID 12 Days #52 cap 09/23/23 Zinc Sulfate [Zinc Sulfate*] 220 mg PO DAILY 7 Days #7 cap 09/23/23 New Medications: Cefdinir [Cefdinir*] 300 mg PO BID 2 Days #4 cap Potassium Chloride 20 meq PO DAILY 3 Days #3 tab Vancomycin HCl 125 mg PO QID 12 Days #52 cap Ascorbic Acid [Vitamin C*] 500 mg PO DAILY 7 Days #7 tab Cholecalciferol (Vitamin D3) [Vitamin D 1000 Iu Tab*] 1,000 unit PO DAILY 7 Days #7 tab Zinc Sulfate [Zinc Sulfate*] 220 mg PO DAILY 7 Days #7 cap Physician Discharge Instructions: Continue ad santino activity as tolerated. Take vancomycin po 125mg po QID for 12 days and cefdinir 300mg po BID for 2 more days. Follow up with PCP within 1 -2 weeks. Diet: AHA Activity: Ad santino Followup: NONE,NONE [UNKNOWN] -
[2023-09-23 13:11] VITALS: BP 137/65; TEMP 96.2
--- NOTE | 2023-09-23 22:02 | P.PN ---
Date of Service: 09/22/23 Subjective Patient doing better. She feels like her symptoms have improved. She feels like she is much better and anticipating discharge. Waiting for urine cultures. Physical Examination - Vitals Reviewed - Physical Exam General: Alert, In no apparent distress, Oriented x3 Respiratory: Clear to auscultation bilaterally, Normal air movement Cardiovascular: Normal pulses, Regular rate/rhythm Gastrointestinal: Normal bowel sounds, Other (Lower quadrant tenderness) Musculoskeletal: No clubbing, No swelling Neurological: No focal deficits Assessment and Plan - Assessment/Plan Assessment/Plan C. difficile colitis Abdominal pain Nausea vomiting Continue with IV fluids and oral antibiotics; Acute cystitis Awaiting for urine culture results Hypokalemia Dehydration Acute kidney Electrolytes replace as needed, IV fluid Hypertension Hyperlipidemia Resume home meds Full code Clear liquid diet DVT SCDs Disposition Home independent prior Discharge Plan: Home - Advance Directives Does patient have a Living Will: No Does patient have a Durable POA for Healthcare: No - Code Status/Comfort Care Code Status: Full Code Critical Care: No Time Spent Managing Pts Care (In Minutes): 25
== END 2023-09-23 13:23 | disposition home or self-care (01) | DRG 871 ==
LOC: ER 15:45 → ERHOLD 20:52 → 4TH 22:18
PROVIDERS: ADMIT Hospitalist; ATTEND Hospitalist
PROC: 02HV33Z Insertion of Infusion Device into Superior Vena Cava, Percutaneous Approach (ICD-10-PCS; principal; 2023-09-22)
DX: A41.9 Sepsis, unspecified organism (principal); U07.1 COVID-19; K57.32 Diverticulitis of large intestine without perforation or abscess without bleeding; N17.9 Acute kidney failure, unspecified; N30.00 Acute cystitis without hematuria; A04.72 Enterocolitis due to Clostridium difficile, not specified as recurrent; I10 Essential (primary) hypertension; E78.00 Pure hypercholesterolemia, unspecified; E87.6 Hypokalemia; E86.0 Dehydration; R74.01 Elevation of levels of liver transaminase levels; Z86.16 Personal history of COVID-19; Z79.899 Other long term (current) drug therapy
CPT/HCPCS: 36415; 74177; 80048; 80053; 81001; 82947; 83605; 83690; 83735; 85025; 85610; 85730; 87040; 87086; 87088; 87324; 93005; 94760; 96361; 96365; 96375; 99285; J0696; J2270; J2405; J2543; J3480; J7030; Q9967